=== PATIENT | female | born 1965 | race Caucasian/White ===

== ENCOUNTER 2025-06-23 09:11 | Outpatient (AMB) | payer OTHER, SELFPAY ==
[2025-06-23 09:23] VITALS: BMI 24.6
--- NOTE | 2025-06-23 09:23 | A.PHYSOV ---
Vital Signs 06/23/25 09:23 Height 5 ft Weight 126 lb BMI 24.6 Intake Visit Reasons: Re-eval for back injection Intake Note: Patient is a 60 year old female in office today for a follow up visit. Patient is requesting thoracic injection Any Commodity Buyer Required: No Allergies No Known Allergies Allergy (Verified 06/23/25 09:22) HPI Comments Details: History of Present Illness The patient is a 60 year old female presenting for follow-up evaluation of lower back pain. The pain began in 2023 after lifting a flower pot and is concentrated in her mid-back. 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 The patient rates her pain as a 7-8 out of 10, particularly during work. She manages the pain by taking naproxen and methocarbamol daily in the morning and at night, supplemented with Tylenol two or three times during the day. She previously tried turmeric, which she felt provided a small amount of relief. She has a history of lymphocytic colitis, which recently flared up, prompting a colonoscopy. During this period, she was treated with a steroid and stopped taking naproxen and turmeric; her back pain returned after the steroid wore off. The patient reports a history of a prior injection in her lower back. She discontinued use of turmeric which was beneficial. At some point we were planning to do left TA transforaminal epidural steroidal injection, however procedure was postponed to evaluate the effectiveness of natural anti-inflammatory supplementation. Pain Description - Onset: The pain started in 2023 after lifting a flower pot. - Location: The pain is concentrated in the mid-back and is worse on the left side, though it sometimes also occurs higher up or lower down. - Severity: The pain reaches a level of 7-8 out of 10. - Exacerbating Factors: Pain is worse during work, which involves repetitive movements. - Relieving Factors: The pain is manageable with naproxen and a muscle relaxer. Results - Imaging: - Thoracic spine X-rays: Noncontributory. - Thoracic spine MRI (11/01/2024): Findings were consistent with a small disc protrusion at the T6-T7 level, a right-sided protrusion at the T7-T8 level, and a left-sided protrusion at the T8-T9 level, the last of which was most consistent with her symptoms. [facility] Medical History (Updated 06/23/25 @ 12:23 by Lloyd Ruth DO) Thoracic disc herniation Thoracic spine pain Surgical History (Updated 06/19/25 @ 10:14 by Radha Perez MA) History of History of back surgery Social History (Updated 06/23/25 @ 09:24 by Radha Perez MA) Alcohol intake: current Alcohol intake frequency: holidays/special occasions only Patient Tobacco Use Status: Former Tobacco user Use of substances other than those prescribed or required for medical reasons: No Current occupational status: employed Current occupation: injection moulding machine operator Review of Systems Narrative Review of Systems - Constitutional: Denies fever or chills. - Musculoskeletal: Reports mid-back pain. - Gastrointestinal: Denies any change in bowel habits. - Genitourinary: Denies any change in bladder habits. Physical Exam Exam Exam: Physical Exam - Back: Examination revealed tenderness to palpation over the mid-back, which was worse on the left side. Patient demonstrates no upper motor neuron signs. Neurological examination of upper and lower extremities was nonfocal. She was able to ambulates without antalgia. Lumbar range of motion was preserved. Spurling and Lhermitte signs were negative. Vital Signs: BMI result Body Mass Index 24.6 Assessment & Plan Assessment & Plan (1) Thoracic spine pain: Code(s): M54.6 - Pain in thoracic spine Category: Medical (2) Thoracic disc herniation: Code(s): M51.24 - Other intervertebral disc displacement, thoracic region Category: Medical Plan Pain Management - Analgesia: The patient is currently taking naproxen and a muscle relaxer twice daily, along with one tablet of Tylenol two to three times per day. - Activities of Daily Living: The patient's pain is primarily associated with her work activities in manufacturing, which involve repetitive movements. - Adverse Effects: The patient experienced a flare-up of lymphocytic colitis; the relationship to her use of naproxen is unknown. Plan Patient was informed and verbally consented to the use of an ambient scribe for clinic note documentation during this visit. 1. Thoracic Back Pain The patient's chronic thoracic back pain is exacerbated by her work and is consistent with MRI findings of multilevel disc protrusions, particularly the left-sided protrusion at T8-T9. Although the pain is somewhat diffuse, the patient identifies a primary pain focus on the left at the T8-T9 level. She has been managing her symptoms with naproxen, a muscle relaxer, and Tylenol. It is recommended that she restart taking turmeric 2000 mg daily for its anti-inflammatory properties. The use of a foam roller at home after work was also suggested. A trial of a left T8-T9 transforaminal epidural steroid injection will be performed to target her most symptomatic area. The procedure will be scheduled for a Saturday after the holiday, accommodating her work schedule. 2. Lymphocytic Colitis The patient has a history of lymphocytic colitis, which recently flared. She was advised that turmeric is a natural anti-inflammatory and is unlikely to irritate her colitis and may even be helpful. She will restart taking turmeric. Risks and benefits of the procedure were discussed with the patient. Potential alternative measures were also discussed. Patient understands that the procedure is completely elective. Potential side effects associated with injectable medications were discussed. All questions were answered to the patient's satisfaction. A light duty note will be provided for the patient for the next 2 months until procedure is done and she is re-evaluated after it. Discussion Notes I discussed with the patient that her chronic mid-back pain is related to the disc protrusions seen on her MRI and aggravated by her work. I recommended she restart turmeric for its anti-inflammatory benefits and try a foam roller to help with her symptoms. I initially expressed uncertainty about the benefit of an injection due to the diffuse nature of her pain, but as she confirmed the most significant pain is localized to one spot on the left, we agreed to try a left T8-T9 transforaminal epidural steroid injection. The patient consented to the in-office procedure and understands this is a one-time trial to assess for efficacy. I explained that my public relations coordinator will contact her to schedule the procedure for after the holiday, on a Saturday that accommodates her work schedule. Patient Instructions - Please restart taking turmeric daily at a dose of 2000 mg. - You can use a foam roller on your back after work to help relieve pain. - Continue your current pain medications as you have been taking them. - Our office will call you to schedule a back injection. - Please let our office know what days work best for you, as the procedure will be scheduled for a Saturday. Coding Level of Care Code Est Pt Level 4 (17056) Add On Problem Visit Only Diagnoses Thoracic spine pain M54.6 Thoracic disc herniation M51.24
== END 2025-06-23 09:56 | disposition home or self-care (01) ==
LOC: HO.HPHYS 09:12
PROVIDERS: PCP Internal Medicine; Visit Provider Physical Medicine & Rehabilitation
DX: M54.6 Pain in thoracic spine (principal); M51.24 Other intervertebral disc displacement, thoracic region
CPT/HCPCS: 99214